=== PATIENT | female | born 1950 | race Caucasian/White ===

== ENCOUNTER 2021-03-03 09:00 | Day surgery (SDC) | payer MEDICARE ==
[~2021-03-03] VITALS: Ht 175.3 cm; Wt 51.8 kg
[~2021-03-03 09:00] MED LIST: AMOXICILLIN500 MG PO; DIGOX125 MCG PO; ELIQUIS5 MG PO; IPRAT-ALBUT 0.5-3 ML INH; LIPITOR80 MG GT; LISINOPRIL5 MG PO; LOVENOX40 MG/0.4; MILK THISTLE500 MG PO; MOVE FREE ULTR1 EAC2 PO; MULTI VITAMIN1 EACH PO; TOPROL XL25 MG PO; TYLENOL EXTRA500 MG PO; VENTOLIN HFA18 GM INH
[2021-03-03] MEDS ORDERED: EFFEXOR XR150 MG PO (09:35)
[2021-03-03] MEDS ORDERED: LIPITOR40 MG PO (09:36)
--- NOTE | 2021-03-03 12:59 | NUR ---
03/03/21 Kristy Matos 124Zhang- PT ARRIVES TO PACU EASILY AROUSABLE TO VOICE. PT FALLS INSTANTLY BACK TO SLEEP WHEN NOT BEING TALKED TO. RESP EVEN AND LABORED. OXYGEN SAT HIGH 90'S TO 100% ON 6L VIA MASK. 1258- XRAY AT THE BEDSIDE FOR CHEST XRAY. OXYGEN TITRATED OFF. PT SITTING UP IN HIGH FOWLERS IN BED. PT REPORTS NO DIZZINESS OR NAUSEA.
[2021-03-03] MEDS ORDERED: ACETAMINOPHEN500 MG PO (13:22)
[2021-03-03] MEDS ORDERED: OXYCODON-ACETA1 EAC2 PO (13:22)
[2021-03-03] MEDS ORDERED: IBUPROFEN600 MG PO (13:23)
--- NOTE | 2021-03-03 15:11 | NUR ---
1500 - pt discharged home with friend. pt transferred to wheelchair indepedantly with the use of a cane.
--- NOTE | 2021-03-04 15:08 | OR ---
[facility] [address], [place] [address] Signed DATE OF OPERATION: 03/03/2021 SURGEON: Kirk Gallegos MD PREOPERATIVE DIAGNOSES: 1. Recurrent breast cancer. 2. Nonfunctional right infraclavicular port device. POSTOPERATIVE DIAGNOSES: 1. Recurrent breast cancer. 2. Nonfunctional right infraclavicular port device. 3. Port catheter immovable from right clavicle. PROCEDURES: 1. Explantation of right pectoral port device with division and ligation of immovable nonremovable right subclavian catheter. 2. Placement of left subclavian Bard port catheter. 3. Surgeon-directed fluoroscopy. ANESTHESIA: General LMA; Calderon Lee CRNA and local 10 mL of 0.25% Marcaine with epinephrine. INDICATION: This 70-year-old white woman is a patient recently long-standing of Dr. Downing, soon Dr. Fish, medical oncologist. Her original breast cancer on the left side was in 2002. She had essentially all of her care in [facility]. She had a right subclavian Port-A-Cath device placed in [place] in 2002. The port has not been functional for at least 4-1/2 years. She is noted to have yet another recurrence, having had several recurrent cancers already including to the sternum and elsewhere. A Port-A-Cath device is needed. Though it has been years since the right subclavian port device has been used, I did attempt lytic therapy with yesterday which was unsuccessful. On that basis, our plan today is to explant the right subclavian Port-A-Cath device and implant a new one possibly to the right internal jugular site versus the left subclavian site depending on whether or not the previous port can be removed in total. We are mindful of the length of time the port has been in place and given its position in the subclavian site, it is not uncommon for the catheter itself to be fixed to the clavicle and not able to be explanted without extreme intervention. Under the circumstances of her situation, if the catheter was found to be fixed and not easily removable, it will simply be secured in place and the port device on the right side removed and another Electronically Signed By: KIRK GALLEGOS MD 03/04/21 1508 PATIENT NAME: JC GAVIN OPERATIVE REPORT DATE OF : 52 REPORT #: [id number] PHYSICIAN: KIRK GALLEGOS MD PCP: BOBBY HOLLINGSWORTH MD REPORT IS CONFIDENTIAL AND NOT TO BE RELEASED WITHOUT AUTHORIZATION [facility] [address], [place] [address] Signed port placed. She understands as does her friend the risk of bleeding, infection, pneumothorax, and other unforeseen complications and wished to proceed. FINDINGS: Indeed, the catheter beneath the right clavicle was fixed and immovable and on that basis it was secured to the pectoralis with several interrupted 2-0 Prolene sutures. The port itself was removed on the right infraclavicular site in total otherwise. Notably, the port was beneath the pectoralis muscle, which I found to be unusual. Access to the left subclavian was easily undertaken and catheter placed without problem. The tip of the catheter was in the superior vena cava and was functioning perfectly well at conclusion of the procedure. Fluoroscopic x-ray was used to secure the catheter in the appropriate position. DESCRIPTION OF PROCEDURE: The patient was brought to the operating room and given a general LMA type anesthetic. Preoperative antibiotics ampicillin and gentamicin have been given as the patient has implanted prosthetic valves. The patient is on a Lovenox bridge therapy approach as she is on a thrombin inhibitor generally. The arms were placed at the side and mild Trendelenburg position maintained. The upper torso including neck and so forth were prepared with a chlorhexidine solution and draped sterilely. A transverse incision was made directly over the incision of the right pectoralis. Dissection carried through the subcutaneous tissue, which showed dense fibrous tissue. The catheter itself was dissected out fully and gently pulled in, was found to be quite firmly fixed to its position in the infraclavicular space in the right side. Of note, passage through the pectoralis muscle was required to get to the catheter, but also to the port which was somewhat surprising. Mindful that the catheter likely is fused to the clavicle itself, the catheter was secured with four separate interrupted 2-0 Prolene sutures and transected not far from the port device. The port was dissected free using electrocautery and blunt dissection and explanted. The wound was then closed with interrupted 2-0 Vicryl including the pectoralis muscle over the sutures. The skin closed with running subcuticular 3-0 Vicryl. Attention was turned towards the left side. It was deemed inadvisable to place the catheter on the right side to the jugular vein under the circumstances of her anatomy, the retained catheter and so on. Using a Seldinger technique, the left subclavian vein was easily accessed showing dark nonpulsatile blood. Fluoroscopy was used to confirm the wire that was passed down the needle was in the right heart system. Electronically Signed By: KIRK GALLEGOS MD 03/04/21 1508 PATIENT NAME: JC GAVIN OPERATIVE REPORT DATE OF : 52 REPORT #: [id number] PHYSICIAN: KIRK GALLEGOS MD PCP: BOBBY HOLLINGSWORTH MD REPORT IS CONFIDENTIAL AND NOT TO BE RELEASED WITHOUT AUTHORIZATION [facility] [address], [place] [address] Signed A small transverse incision was made over the left pectoral area. Dissection carried through the very thin subcutaneous tissue and a pocket developed over the left pectoralis muscle. The skin at the site of the exit of the wire in the left infraclavicular space was incised with an #11 blade and the dilator and subsequently dilator and peel-away introducer passed over the wire. The wire and the dilator were removed showing vigorous nonpulsatile retrograde dark blood. The previously inspected Groshong-tip catheter was passed through the peel-away sheath introducer stabilized gently with a forceps and the peel-away introducer removed completely. Aspiration on the catheter showed dark nonpulsatile blood. It was flushed with heparinized saline. Fluoroscopy was then employed. The patient was taken out of a Trendelenburg position and the catheter withdrawn to what should be the atriocaval junction. Contrast was used to ascertain the position of the catheter. A port device was partially secured to the pectoralis muscle in the pocket site. The catheter was delivered to the pocket inferiorly with the enclosed tunneling device, trimmed to the appropriate length and secured to the port device per manufacture's instructions with the enclosed collar device. The port was then secured to the pectoralis fascia with interrupted 2-0 Vicryl. Access to the port with an angled Daniels needle showed easy withdrawal of dark nonpulsatile blood and easy flushing with heparinized saline. The pocket was closed and additional access percutaneously with angled Daniels needle showed good function of the catheter. Fluoroscopy was used to affirm the tip of the catheter in the appropriate position as well as no kinks or other angulation deformity of the catheter itself. Steri-Strips were applied to each site as were Acticoat dressings. The patient tolerated procedure well. Blood loss was 10 mL or less. Sponge, needle and instrument counts were per as correct x3. A postprocedure chest x-ray in recovery room showed good position of the catheter and no evidence of complication, specifically no pneumothorax. MD CARLOS Cavazos/MODL /[id number] Electronically Signed By: KIRK GALLEGOS MD 03/04/21 1508 PATIENT NAME: JC GAVIN OPERATIVE REPORT DATE OF : 52 REPORT #: [id number] PHYSICIAN: KIRK GALLEGOS MD PCP: BOBBY HOLLINGSWORTH MD REPORT IS CONFIDENTIAL AND NOT TO BE RELEASED WITHOUT AUTHORIZATION [facility] [address], [place] [address] Signed cc: MD Jarred Acuna MD Copies: JORGE FISH MD, ROBERT C MD ~ Electronically Signed By: KIRK GALLEGOS MD 03/04/21 1508 PATIENT NAME: JC GAVIN OPERATIVE REPORT DATE OF : 52 REPORT #: [id number] PHYSICIAN: KIRK GALLEGOS MD PCP: BOBBY HOLLINGSWORTH MD REPORT IS CONFIDENTIAL AND NOT TO BE RELEASED WITHOUT AUTHORIZATION
== END 2021-03-03 15:00 | disposition home or self-care (01) ==
LOC: DS 09:00
PROVIDERS: ATTEND Surgery
PROC: 0JJT0ZZ Inspection of Trunk Subcutaneous Tissue and Fascia, Open Approach (ICD-10-PCS; principal; 2021-03-03 10:30)
DX: T82.514A Breakdown (mechanical) of infusion catheter, initial encounter (principal); Z85.3 Personal history of malignant neoplasm of breast; Z95.2 Presence of prosthetic heart valve; Z86.73 Personal history of transient ischemic attack (TIA), and cerebral infarction without residual deficits; Z88.8 Allergy status to other drugs, medicaments and biological substances; Y83.8 Other surgical procedures as the cause of abnormal reaction of the patient, or of later complication, without mention of misadventure at the time of the procedure
CPT/HCPCS: 00532; 71045; 77001; C1788; J0131; J0290; J1100; J1580; J2001; J2405; J2704; J3010; J7121